=== PATIENT | male | born 2000 | race Hispanic/Latino ===

== ENCOUNTER → 2024-10-19 | Emergency (ER) | payer SELFPAY ==
[~2024-10-19] VITALS: Ht 175.3 cm; Wt 63.5 kg
[~2024-10-19] MED LIST: 0.9%NACL 1000ML 1,000 ML IV ONE; ondanSETRON 4MG INJ IVP ONE
[2024-10-19 20:40] VITALS: O2SAT 99
--- NOTE | 2024-10-19 20:42 | ERN ---
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 NAUSEA VOMITING. NO PRIMARY CARE DOCTOR. Past Medical History Past Medical History: No Pertinent History Surgical History: None RN Note Reviewed/Agreed w/PFSH: Yes Review of System Dictation CONSTITUTIONAL: NEGATIVE EXCEPT FOR HPI HEAD/FACE: NEGATIVE EXCEPT FOR HPI EENT: NEGATIVE EXCEPT FOR HPI RESPIRATORY: NEGATIVE EXCEPT FOR HPI GASTROINTESTINAL/ABDOMINAL: NEGATIVE EXCEPT FOR HPI NAUSEA VOMITING GENITOURINARY: NEGATIVE EXCEPT FOR HPI MUSCULOSKELETAL: NEGATIVE EXCEPT FOR HPI MUSCLE CRAMPS INTEGUMENTARY: NEGATIVE EXCEPT FOR HPI NEUROLOGICAL/PSYCH: NEGATIVE EXCEPT FOR HPI HEMATOLOGIC/LYMPHATIC: NEGATIVE EXCEPT FOR HPI ALL SYSTEMS NEGATIVE, EXCEPT NOTED ABOVE. 13 POINT REVIEW OF SYSTEMS ASSESSED AND ALL NEGATIVE EXCEPT FOR ABOVE. Initial Vital Sign VS Vital Signs Date Time Temp Pulse Resp B/P (MAP) Pulse Ox O2 Delivery O2 Flow Rate FiO2 10/19/24 20:32 99.1 87 18 118/63 Room Air 0 10/19/24 20:40 99 21 Physical Exam Dictation VITAL SIGNS REVIEWED GENERAL APPEARANCE: ALERT, ORIENTED X 3, MILD ACUTE DISTRESS, WELL DEVELOPED, NOURISHED. HEAD AND FACE: NON-TRAUMATIC. EYES: PERRL, PINK CONJUNCTIVAS, EYELID NO TRAUMA, ANTERIOR CHAMBER WITH ARCUS SENILIS. EARS: PINNAS INTACT AND NO SIGNS OF TRAUMA OR ERYTHEMA EAR CANALS CLEAR AND NO DISCHARGE TM NO ERYTHEMA NOSE: NO DISCHARGE, NO BLEEDING. OROPHARYNX: MOUTH NORMAL, TONGUE PINK, PHARYNX CLEAR,NO ERYTHEMA, TONSILS NO EXUDATES, NO ABSCESSES NOTED, MUCOUS MEMBRANE MOIST NECK: SUPPLE, NON-TENDER, NO THYROMEGALY, NO MASSES, NO JVD, NO BRUITS BREAST:DEFERRED CHEST:NO TENDERNESS, NO CREPITUS, NO PARADOXICAL MOVEMENT, NO RETRACTIONS LUNGS:CLEAR, WELL-VENTILATED, SYMMETRIC, NO RALES, NO WHEEZING, NO RHONCHI, NO STRIDOR, GOOD BREATH SOUNDS BILATERALLY HEART: REGULAR RATE, REGULAR RHYTHM, NO MURMUR, NO GALLOPS VASCULAR: NO PERIPHERAL EDEMA, ABDOMEN: SOFT, POSITIVE BOWEL SOUNDS, NONDISTENDED, NO GUARDING, NONTENDER, NO REBOUND, NO MASSES NO HEPATOMEGALY, NO SPLENOMEGALY, NO GOLDEN'S SIGN, NO HERNIAS. NO FOCAL PAIN, NAUSEATED THE PRESENT TIME RECTAL: DEFERRED GENITAL: DEFERRED NEUROLOGICAL: NORMAL SPEECH, MOTOR FUNCTION INTACT, SENSORY FUNCTION INTACT MUSCULOSKELETAL: NECK NONTENDER, FULL RANGE OF MOTION, BACK NONTENDER, FULL RANGE OF MOTION, EXTREMITIES: NONTENDER, FULL RANGE OF MOTION SKIN: COLOR PINK, DRY, NO TURGOR, NO RASH, NO LACERATIONS, NO ABRASIONS, NO CONTUSIONS. LYMPHATIC: DEFERRED Results (Laboratory/Radiology) Laboratory/Radiology Laboratory Tests Test 10/19/24 20:48 White Blood Count 12.8 K/uL (4.8-10.8) H Red Blood Count 4.84 MIL/uL (4.50-6.20) Hemoglobin 14.6 g/dL (14.0-18.0) Hematocrit 40.2 % (42-54) L Mean Corpuscular Volume 83.1 fL (79-99) Mean Corpuscular Hemoglobin 30.2 pg (27.0-33.0) Mean Corpuscular Hemoglobin Concent 36.3 g/dL (32.0-36.0) H Red Cell Distribution Width 11.9 % (11.0-15.5) Platelet Count 257 K/uL (130-400) Mean Platelet Volume 11.2 fL (7.5-10.5) H Immature Granulocyte % (Auto) 0.4 % (0-1) Neutrophils (%) (Auto) 90.8 % (40.0-77.0) H Lymphocytes (%) (Auto) 5.2 % (21.0-51.0) L Monocytes (%) (Auto) 3.4 % (3.0-13.0) Eosinophils (%) (Auto) 0.0 % (0.0-8.0) Basophils (%) (Auto) 0.2 % (0.0-5.0) Neutrophils # (Auto) 11.7 K/uL (1.8-7.7) H Lymphocytes # (Auto) 0.7 K/uL (1.0-4.8) L Monocytes # (Auto) 0.4 K/uL (0.1-1.0) Eosinophils # (Auto) 0.00 K/uL (0.00-0.70) Basophils # (Auto) 0.03 K/uL (0.00-0.20) Absolute Immature Granulocyte (auto 0.05 K/uL (0-1) Nucleated Red Blood Cells 0.0 % (0.0-0.19) White Cell Morphology Comment See comments Red Blood Cell Morphology NORMAL Sodium Level 135 mmol/L (136-145) L Potassium Level 3.8 mmol/L (3.5-5.1) Chloride Level 95 mmol/L (101-111) L Carbon Dioxide Level 23 mmol/L (21-32) Blood Urea Nitrogen 29 mg/dL (7-18) H Creatinine 2.0 mg/dL (0.5-1.3) H Glomerular Filtration Rate Calc 47 mL/min (>90) Random Glucose 120 mg/dL (70-105) H Total Calcium 9.2 mg/dL (8.5-10.1) Total Creatine Kinase 263 U/L (21-232) H Labs Reviewed?: Yes ED Course ED Course Orders Procedure Category Date Status Time Creatine Kinase, Total LAB 10/19/24 Complete 20:39 Cbc With Differential LAB 10/19/24 In Process 20:39 0.9%Nacl 1000ml (Ns PHA 10/19/24 Logged 1000ml) 21:00 Ondansetron 4mg Inj PHA 10/19/24 Logged (Zofran 4mg Inj) 21:00 Basic Metabolic Panel LAB 10/19/24 Complete 20:39 Ondansetron 4mg Inj PHA 10/19/24 Complete (Zofran 4mg Inj) 20:50 Current Medications Medications (Trade) Dose Ordered Sig/Concepcion Route PRN Reason Start Time Stop Time Status Last Admin Dose Admin Ondansetron HCl (zoFRAN 4MG INJ) 4 mg ONCE ONCE IVP 10/19/24 21:00 10/19/24 21:01 UNV Ondansetron HCl (zoFRAN 4MG INJ) 4 mg STK-MED ONCE .ROUTE 10/19/24 20:50 10/19/24 20:51 DC Sodium Chloride 1,000 ml @ 0 mls/hr ONCE ONCE IV 10/19/24 21:00 10/19/24 21:01 UNV Vital Signs Date Time Temp Pulse Resp B/P (MAP) Pulse Ox O2 Delivery O2 Flow Rate FiO2 10/19/24 20:40 98.4 86 18 126/65 99 Room Air* 0 21 10/19/24 20:32 99.1 87 18 118/63 Room Air 0 2150/PATIENT RECEIVED A TOTAL OF 1500 ML OF FLUID. 500 ML FROM EMS, 1000 ML FROM THE EMERGENCY ROOM. PATIENT URINE IS CLEARING. HE STATES HE FEELS BETTER AND WISHES TO GO HOME. 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 HE COULD GO BACK TO WORK ON TUESDAY. HE AND HIS AGREED. QUESTIONS AND Medical Decision Making MDM MEDICAL DECISION-MAKING BASED ON BASIC LABS FOR HEAT EXPOSURE. PATIENT WAS MODERATELY DEHYDRATED AND RECEIVED 1500 ML OF NORMAL SALINE TOTAL. PATIENT STATES HE FEELS MARKEDLY IMPROVED AFTER TREATMENT. HE WAS ADVISED TO STAY HOME TOMORROW AND WORK ON HIS HYDRATION WITH THE INSTRUCTIONS GIVEN FOLLOWING [employer] GUIDELINES. HE AND HIS AGREED HE WOULD STAY HOME AND GO BACK TO WORK ON TUESDAY. ALL QUESTIONS ANSWERED DX & DISP Disposition: Discharge Departure Impression: Primary Impression: Heat exposure Additional Impressions: Nausea & vomiting, Moderate dehydration, Hypochloremia, Elevated CK Condition: Stable Additional Instructions: FOLLOW-UP WITH PRIMARY CARE PROVIDER IN 1 TO 2 DAYS. TAKE MEDICATIONS DIRECTED HERE IN THE EMERGENCY ROOM. OKAY TO CONTINUE HOME MEDICATIONS UNLESS OTHERWISE DISCUSSED DURING YOUR VISIT IN THE EMERGENCY ROOM TODAY. RETURN TO YOUR NEAREST EMERGENCY ROOM IF SYMPTOMS WORSEN OR IF THERE IS NO IMPROVEMENT. CALL 911 IF YOU NEED IMMEDIATE ASSISTANCE. TAKE TYLENOL OR MOTRIN [id number] NEEDED AND IF NO CONTRAINDICATIONS ARE PRESENT. INCREASE ORAL HYDRATION. A WOUND CULTURE OR URINE CULTURE WAS ORDERED HERE IN THE EMERGENCY ROOM DEPARTMENT PLEASE FOLLOW-UP WITH PRIMARY CARE PROVIDER AND ADVISE THEM TO GET REPEAT PORTS FROM OUR FACILITY. IF YOU HAD ANY CHRISTINA WRAP/SPLINTS THAT WERE APPLIED HERE, PLEASE DO NOT REMOVE THEM UNTIL YOU SEE YOUR PRIMARY CARE OR SPECIALTY. NO WORK UNTIL TUESDAY. NO ALCOHOL, NO ICE TEA, NO COFFEE, NO SODA POP UNTIL CLEARED BY YOUR DOCTOR TUESDAY. TOMORROW, SIPS OF GATORADE OR POWERADE EVERY 15 MINUTES WHILE AWAKE FOR THE NEXT 24 HOURS. Time of Disposition: 21:54 I have reviewed the case, and I agree with, Diagnosis and Plan NATHALY RAMÍREZ NP Oct 19, 2024 20:42
[2024-10-19] MEDS: ondanSETRON 4MG INJ ONE (20:54)
[2024-10-19 21:25] LABS: BASOPHILS # (AUTO) 0.03 K/uL (0.00-0.20); BASOPHILS % (AUTO) 0.2 % (0.0-5.0); HEMATOCRIT 40.2 % (42-54); IMMATURE GRANULOCYTE ABSOLUTE 0.05 K/uL (0-1); LYMPHOCYTES # (AUTO) 0.7 K/uL (1.0-4.8); LYMPHOCYTES % (AUTO) 5.2 % (21.0-51.0); MEAN CORPUSCULAR HEMOGLOBIN 30.2 pg (27.0-33.0); MEAN CORPUSCULAR HGB CONC 36.3 g/dL (32.0-36.0); MEAN CORPUSCULAR VOLUME 83.1 fL (79-99); MONOCYTES # (AUTO) 0.4 K/uL (0.1-1.0); MONOCYTES % (AUTO) 3.4 % (3.0-13.0); NEUTROPHILS # (AUTO) 11.7 K/uL (1.8-7.7); NEUTROPHILS % (AUTO) 90.8 % (40.0-77.0); PLATELET COUNT (AUTO) 257 K/uL (130-400); RED BLOOD CELL COUNT(AUTO) 4.84 MIL/uL (4.50-6.20); RED CELL DISTRIBUTION WIDTH 11.9 % (11.0-15.5); WHITE BLOOD COUNT (AUTO) 12.8 K/uL (4.8-10.8)
[2024-10-19 21:32] LABS: POTASSIUM 3.8 mmol/L (3.5-5.1)
--- NOTE | 2024-10-19 22:08 | NUR ---
SALINE 1L AND ZOFRAN IV GIVEN, UNABLE TO VIEW FROM MED LIST
[2024-10-19 22:09] VITALS: BP 132/55; PULSE 82; RESP 18; TEMP 98.4
== END ==
LOC: EDH 20:31
DX: R11.2 Nausea with vomiting, unspecified (principal); E86.0 Dehydration; E87.8 Other disorders of electrolyte and fluid balance, not elsewhere classified; R74.8 Abnormal levels of other serum enzymes
CPT/HCPCS: 36415; 80048; 82550; 85025; 99283; J2405